=== PATIENT | male | born 1980 | race Caucasian/White ===

== ENCOUNTER 2023-01-22 12:21 | Outpatient (RCR) | payer BC, MEDICAID, SELFPAY | END 2023-02-13 23:59 | disposition home or self-care (01) | LOC: SPT 12:21 | PROVIDERS: PCP Orthopaedic Surgery; Visit Provider Orthopaedic Surgery | DX: R26.89 Other abnormalities of gait and mobility (principal) | CPT/HCPCS: 97110; 97161 ==

== ENCOUNTER 2023-02-19 19:02 | Emergency (ER) | payer MEDICAID, SELFPAY ==
[2023-02-19 19:05] VITALS: BP 115/66; PULSE 103; RESP 18; TEMP 37.2; O2SAT 93; BMI 22.8
--- NOTE | 2023-02-19 19:24 | XRR_ITS ---
PROCEDURE INFORMATION: Exam: XR Right Knee Exam date and time: 02/19/2023 8:49 PM Age: 42 years old Clinical indication: Pain; Knee; Right TECHNIQUE: Imaging protocol: Radiologic exam of the right knee. Views: 3 views. COMPARISON: CR (LOW EXM, ) 02/19/2023 8:47 PM FINDINGS: Bones/joints: Healed fractures of proximal fibula and tibia noted. Anterior cortical defect can be referenced on dedicated tibia and fibula report from same date. No acute bony findings at the knee. Joint spaces are well-preserved and there is no evident joint effusion. Soft tissues: Normal. XR/XR knee RT 3V* [id number] IMPRESSION: No acute findings at the knee.
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
--- NOTE | 2023-02-19 19:28 | XRR_ITS ---
PROCEDURE INFORMATION: Exam: XR Right Tibia and Fibula Exam date and time: 02/19/2023 8:47 PM Age: 42 years old Clinical indication: Pain; Lower leg; Right; Additional info: Injury TECHNIQUE: Imaging protocol: Radiologic exam of the right tibia and fibula. Views: 2 views. COMPARISON: No relevant prior studies available. FINDINGS: Bones/joints: No definite acute fracture or dislocation. Osseous irregularity of the proximal tibia and fibula compatible with sequelae of remote trauma and orthopedic hardware. Soft tissues: Grossly unremarkable. XR/XR tibia fibula RT 2V [id number] IMPRESSION: 1. No definite acute fracture or dislocation however exam sensitivity and specificity is somewhat limited by technique. If there is continued clinical concern for occult underlying fracture a CT of the right tibia and fibula is suggested for further evaluation. 2. Osseous irregularity of the proximal tibia and fibula compatible with sequelae of remote trauma and orthopedic hardware. Cannot exclude evolving infectious/inflammatory process. An MRI of the right lower extremity is suggested for further evaluation if clinically indicated.
[2023-02-19] MEDS: ketorolac 30 mg/mL INJ 15 MG IM (20:58)
[2023-02-19] MEDS: ondansetron 2 mg/ML SDV 2 mL 4 MG IM (20:58)
== END 2023-02-19 21:04 | disposition home or self-care (01) ==
PROVIDERS: Emergency Provider Nurse Practitioner Family; PCP Orthopaedic Surgery
DX: S80.11XA Contusion of right lower leg, initial encounter (principal); F10.920 Alcohol use, unspecified with intoxication, uncomplicated; Y90.9 Presence of alcohol in blood, level not specified; Y35.813A Legal intervention involving manhandling, suspect injured, initial encounter
CPT/HCPCS: 73562; 73590; 96372; 99284; J1885; J2405

== ENCOUNTER 2024-09-10 23:41 | Emergency (ER) | payer MEDICAID, SELFPAY ==
[2024-09-10 23:48] VITALS: BP 133/73; PULSE 112; RESP 18; TEMP 36.6; O2SAT 94; BMI 25.8
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
== END 2024-09-11 00:46 | disposition home or self-care (01) ==
PROVIDERS: Emergency Provider Physician Assistant; PCP Orthopaedic Surgery
DX: Z71.1 Person with feared health complaint in whom no diagnosis is made (principal)
CPT/HCPCS: 99283

== ENCOUNTER 2025-07-03 14:38 | Emergency (ER) | payer SELFPAY ==
[2025-07-03 14:44] VITALS: BP 123/87; PULSE 118; RESP 19; TEMP 36.9; O2SAT 96; BMI 21.5
--- NOTE | 2025-07-03 15:46 | W.ED.DENTAL ---
HPI - Dental/Oral General: Chief complaint: Dental/Oral Stated complaint: tooth pain Time Seen by Provider: 07/03/25 15:38 Source: patient Mode of arrival: ambulatory Limitations: no limitations History of Present Illness: Patient is a 44-year-old male here with a complaint of dental pain/abscess. Patient states over the past several days he has noticed intermittent left-sided facial swelling. He feels like he had a tooth abscess bust open . He also states at some point he stabbed the abscess with a sewing needle and now tastes purulent material in his mouth which makes him nauseous. Patient states he cannot afford a dentist. He states he has a longstanding history of dental issues. He states he normally takes fish antibiotics when he gets infections but has not taken any this time. No fevers. He does not complain of a headache or visual changes. Patient is very hyperactive/fidgety on exam. MD Complaint: tooth pain Teeth map:  1. Onset (ago): day(s) Duration: constant Severity: severe Relieving factors: nothing Exacerbating factors: nothing Context: history of dental caries and poor dental care Associated symptoms: Denies ear or mastoid pain, fever(s) or odynophagia Treatment prior to arrival: none Related Data Previous Rx's ?Medication ?Instructions ?Recorded clindamycin HCl 300 mg capsule 300 mg PO Q6H 7 days #28 caps 07/03/25 ondansetron 4 mg disintegrating 4 mg PO Q8H PRN nausea and 07/03/25 tablet vomiting #14 tabs tramadol 50 mg tablet 50 mg PO Q6H PRN pain #8 tabs 07/03/25 Allergies Allergy/AdvReac Type Severity Reaction Status Date / Time No Known Allergies Allergy Verified 02/19/23 19:09 Review of Systems Const: Denies: fever(s), chills, body aches, fatigue or malaise Eyes: Denies: change in vision, blurry vision, photophobia, floaters or seeing flashes ENMT: Reports: dental pain and sinus pain; Denies: throat pain, uvular edema, enlarged tonsils, odynophagia, hoarseness, mouth pain, swelling of lips/tongue, oral sores, bleeding gums, dry mouth, ear or mastoid pain, nasal discharge or nasal congestion Card: Denies: chest pain Resp: Denies: dyspnea GI: Reports: nausea and vomiting; Denies: abdominal pain, hematemesis or change in bowel habits : Denies: flank pain, difficulty urinating, dysuria, urinary frequency, urinary urgency or urinary hesitancy Musc: Denies: neck pain, back pain, extremity pain, extremity swelling, joint pain or joint swelling Skin/Breast: Denies: rash Neuro: Denies: headache(s), dizziness or confusion Physical Exam Const: COMMON NORMALS: patient oriented x3, no limitations, alert and well nourished GENERAL APPEARANCE: cooperative, anxious and other (psychomotor agitation) ORIENTATION/CONSCIOUSNESS: Yes awake, Yes oriented to person, Yes oriented to place and Yes oriented to time HENMT: COMMON NORMALS: normocephalic, atraumatic and Normal external nose present HEAD & SCALP: normal to inspection, normocephalic and atraumatic FACE & SINUS: edema (mild L); no crepitus and no erythema FACE & SINUS IMAGES:  1. facial swelling-pt does not allow me to touch/palpate NOSE: Normal external nose present MOUTH: Normal oral and palatal mucosa present, lip normal, tongue normal and Normal salivary glands and ducts present TEETH & GINGIVA: Yes caries and Yes poor dentition TEETH & GINGIVA IMAGES:  1. pt barely allows me to look inside his mouth and certainly does not allow me to palpate anything-there does appear to be a developing abscess along the L maxillary gum line; he is very fidgety with psychomotor agitation THROAT: posterior oropharynx normal, tonsils normal and uvula midline; no uvular edema Eye: GENERAL EYE: appearance normal, both eyes and all related structures Neck/C-Spine: COMMON NORMALS: no lymphadenopathy GENERAL: No anterior neck swelling and No submandibular swelling Resp: COMMON NORMALS: normal respiratory effort and clear to auscultation bilaterally AUSCULTATION: clear to auscultation bilaterally Cardio: COMMON NORMALS: regular rhythm RATE: tachycardic RHYTHM: regular rhythm Neuro: COMMON NORMALS: patient oriented x3 SENSORIUM/ORIENTATION: Yes alert, Yes oriented to person, Yes oriented to place and Yes oriented to time Course Vital Signs: Vital signs: Vital Signs Temperature 98.4 F 07/03/25 14:44 Pulse Rate 118 H 07/03/25 14:44 Respiratory Rate 19 H 07/03/25 14:44 Blood Pressure 123/87 07/03/25 14:44 Pulse Oximetry 96 07/03/25 14:44 Oxygen Delivery Me thod Room Air 07/03/25 14:44 MDM - Dental/Oral Medical Decision Making Patient here for what looks/sounds to be a dental abscess. Patient is fairly uncooperative during examination. He is fidgety with psychomotor agitation. Some concern for drug use based on his behavior although this could just be pain induced. He probably does need the abscess incised however he is adamantly refusing this. We will place him on antibiotics. He is requesting something for pain/nausea. Discussed dental follow up but he states he probably won't because he cannot afford it. We did discuss symptoms that should prompt him to return here. Differential Diagnosis Likely gingival abscess, dental caries, toothache and dental abscess Medical Records I reviewed the patient's medical records. No radiology studies performed this visit Discharge Plan Discharge Patient Disposition: Home Clinical Impression: Dental abscess Condition: Stable Prescriptions: New clindamycin HCl 300 mg capsule 300 mg PO Q6H 7 Days Qty: 28 0RF tramadol 50 mg tablet 50 mg PO Q6H PRN (Reason: pain) Qty: 8 0RF ondansetron 4 mg tablet,disintegrating 4 mg PO Q8H PRN (Reason: nausea and vomiting) Qty: 14 0RF Discharge Orders: Discharge ED (Routine); Ordered 07/03/25 Ordered By: Guillermina Guthrie Referrals: Alexis Jasmine MD [Primary Care Provider, Orthopedics] Patient Instructions: Dental Abscess (ED), Opioid Safety, Pain Management, Patient Portal & Felipe Instructions Activity Restrictions/Additional Instructions: As we discussed, you need to fill your antibiotics and start them immediately. You need to follow-up with a dentist to soon as possible. You may return to the emergency department for worsening pain, facial swelling, fevers, severe headache, visual changes, generally feeling worse or unwell, not improving on antibiotics, or any other concerns you may have. Print Language: Guyanese Coding Level of Care Code ED Accountant Controller for Jigar Hilliard
[2025-07-03] MEDS: HYDROcodone-acetaminophen 5-325 mg Tablet 1 TAB PO (16:04)
== END 2025-07-03 16:06 | disposition home or self-care (01) ==
PROVIDERS: Emergency Provider Physician Assistant; PCP Orthopaedic Surgery
DX: K04.7 Periapical abscess without sinus (principal)
CPT/HCPCS: 99283; J9999; Q0162